=== PATIENT | male | born 2000 | race Two or more races ===

== ENCOUNTER 2021-01-30 17:03 | Emergency (ER) | payer OTHER ==
[2021-01-30 17:33] VITALS: BP 139/51; PULSE 99; TEMP 98.8; BMI 31.3
[2021-01-30] MEDS ORDERED: LIDOCAINE HCL 1%, 10 MG/ML (20ML VIAL) ONE (18:41)
[2021-01-30] MEDS ORDERED: DIPHTH,PERTUSS(ACELL),TET 0.5 ML DISP.SYRIN IM ONE ×2 (19:15)
[2021-01-30] MEDS ORDERED: LIDOCAINE HCL 1%, 10 MG/ML (50 mL VIAL) INF ONE (19:15)
== END 2021-01-30 19:34 | disposition home or self-care (01) ==
LOC: JERFT 17:03
PROC: 0HQFXZZ Repair Right Hand Skin, External Approach (ICD-10-PCS; principal; 2021-01-30)
PROC: 3E0234Z Introduction of Serum, Toxoid and Vaccine into Muscle, Percutaneous Approach (ICD-10-PCS; 2021-01-30)
DX: S61.011A Laceration without foreign body of right thumb without damage to nail, initial encounter (principal); W26.0XXA Contact with knife, initial encounter; Y92.9 Unspecified place or not applicable
CPT/HCPCS: 90715; 99284-25

== ENCOUNTER 2021-02-09 19:03 | Emergency (ER) | payer OTHER ==
[2021-02-09 19:14] VITALS: BP 113/62; PULSE 76; TEMP 98; BMI 32.8
== END 2021-02-09 20:49 | disposition home or self-care (01) ==
LOC: JERFT 19:03
DX: S61.011A Laceration without foreign body of right thumb without damage to nail, initial encounter (principal); Y99.9 Unspecified external cause status; Z48.02 Encounter for removal of sutures
CPT/HCPCS: 99281-25